=== PATIENT | female | born 1990 | race Caucasian/White ===

== ENCOUNTER 2017-06-01 02:35 | Outpatient (CLI) | payer OTHER | END 2017-06-01 06:10 | disposition home or self-care (01) | LOC: OBT 02:35 → L-D 02:39 → OBT 06:10 | DX: O26.893 Other specified pregnancy related conditions, third trimester (principal); R10.2 Pelvic and perineal pain; Z3A.24 24 weeks gestation of pregnancy | CPT/HCPCS: 76815; 76817 ==

== ENCOUNTER 2017-09-01 22:56 | Outpatient (CLI) | payer OTHER ==
[2017-09-02] MEDS: LACTATED RINGER'S 1,000 ML IV ×2 (00:11→02:04)
[2017-09-02 00:23] LABS: ADD MAN DIFF? NO
[2017-09-02 00:27] LABS: WHITE BLOOD COUNT 6.8 10^3/ul (4.8-10.8)
[2017-09-02 00:27] LABS: BASOPHILS % 0.1 % (0.0-2.0); EOSINOPHILS % 0.4 % (0.0-7.0); HEMATOCRIT 33.3 % (37.0-47.0); HEMOGLOBIN 11.3 g/dl (12.0-16.0); LYMPHOCYTES # 1.9 10^3/ul (0.8-2.9); MEAN CORPUSCULAR HEMOGLOBIN 29.8 pg (29.0-33.0); MEAN CORPUSCULAR HGB CONC 33.9 g/dl (32.0-37.0); MEAN CORPUSCULAR VOLUME 87.9 fl (82.0-101.0); MEAN PLATELET VOLUME 11.6 fl (7.4-10.4); MONOCYTE # 0.5 10^3/ul (0.3-0.9); MONOCYTES % 7.6 % (0.0-11.0); NEUTROPHIL # 4.4 10^3/ul (1.6-7.5); NEUTROPHILS % 64.6 % (39.0-77.0); PLATELET COUNT 180 10^3/UL (140-415); RED BLOOD COUNT 3.79 10^6/ul (4.20-5.40)
[2017-09-02 00:37] LABS: ADD UMIC YES; UR ASCORBIC ACID NEGATIVE (NEGATIVE); UR BACTERIA FEW /HPF (NONE SEEN); UR BILIRUBIN (Dip) NEGATIVE (NEGATIVE); UR BLOOD (Dip) NEGATIVE (NEGATIVE); UR CLARITY CLEAR (CLEAR); UR COLOR YELLOW (YELLOW); UR GLUCOSE (Dip) NEGATIVE (NEGATIVE); UR KETONES (Dip) NEGATIVE (NEGATIVE); UR LEUKOCYTE ESTERASE (Dip) TRACE Leu/ul (NEGATIVE); UR NITRITE (Dip) NEGATIVE (NEGATIVE); UR RBC 0 /HPF (0-5); UR SPECIFIC GRAVITY (Dip) 1.015 (1.003-1.030); UR TOTAL PROTEIN (Dip) NEGATIVE (NEGATIVE); UR UROBILINOGEN (Dip) NEGATIVE (NEGATIVE); UR WBC 1 /HPF (0-5)
[2017-09-02 00:42] LABS: ALANINE AMINOTRANSFERASE 19 IU/L (13-69); ALBUMIN 3.6 g/dl (3.3-4.9); ALBUMIN/GLOBULIN RATIO 1.09; ALKALINE PHOSPHATASE 207 IU/L (42-121); ANION GAP 13 (8-16); ASPARTATE AMINO TRANSFERASE 26 IU/L (15-46); BLOOD UREA NITROGEN 9 mg/dl (7-20); CALCIUM 8.8 mg/dl (8.4-10.2); CARBON DIOXIDE 25 mmol/L (21-31); CHLORIDE 107 mmol/L (97-110); CREATININE 0.57 mg/dl (0.44-1.00); GLUCOSE 72 mg/dl (70-220); POTASSIUM 3.8 mmol/L (3.5-5.1); SODIUM 141 mmol/L (135-144); TOTAL PROTEIN 6.9 g/dl (6.1-8.1)
== END 2017-09-02 03:20 | disposition home or self-care (01) ==
LOC: OBT 22:56 → L-D 22:58
DX: O36.8130 Decreased fetal movements, third trimester, not applicable or unspecified (principal); Z3A.37 37 weeks gestation of pregnancy
CPT/HCPCS: 36415; 76818; 80053; 81001; 85025; 96360; 96361

== ENCOUNTER 2017-09-08 17:10 | Outpatient (CLI) | payer OTHER | END 2017-09-08 18:50 | disposition home or self-care (01) | LOC: OBT 17:10 → L-D 17:11 → OBT 18:50 | DX: O62.9 Abnormality of forces of labor, unspecified (principal); Z3A.38 38 weeks gestation of pregnancy | CPT/HCPCS: Z7500 ==

== ENCOUNTER 2017-09-10 06:23 | Inpatient (IN) | payer OTHER ==
[2017-09-10] MEDS ORDERED: LACTATED RINGER'S 1,000 ML IV (06:46)
[2017-09-10] MEDS ORDERED: OXYTOCIN 30 UNITS/LR 500 ML IV ×2 (07:00→14:30)
[2017-09-10] MEDS ORDERED: IBUPROFEN 600 MG TAB PO (07:00)
[2017-09-10] MEDS ORDERED: BUTORPHANOL 2 MG INJ IV (07:00)
[2017-09-10] MEDS ORDERED: LIDOCAINE 1% (MPF) 30 ML INJ INJ (07:00)
[2017-09-10] MEDS ORDERED: MISOPROSTOL 200 MCG TAB PR ×2 (07:00→14:30)
[2017-09-10] MEDS ORDERED: CARBOPROST 250 MCG INJ IM ×2 (07:00→14:30)
[2017-09-10] MEDS ORDERED: METHYLERGONOVINE 0.2 MG INJ IM ×2 (07:00→14:30)
[2017-09-10 07:04] LABS: ADD MAN DIFF? NO
[2017-09-10 07:06] LABS: WHITE BLOOD COUNT 7.4 10^3/ul (4.8-10.8)
[2017-09-10 07:06] LABS: BASOPHILS % 0.1 % (0.0-2.0); EOSINOPHILS # 0.1 10^3/ul (0.0-0.5); EOSINOPHILS % 0.7 % (0.0-7.0); HEMATOCRIT 36.5 % (37.0-47.0); HEMOGLOBIN 12.4 g/dl (12.0-16.0); LYMPHOCYTES # 2.1 10^3/ul (0.8-2.9); MEAN CORPUSCULAR HEMOGLOBIN 30.6 pg (29.0-33.0); MEAN CORPUSCULAR VOLUME 90.1 fl (82.0-101.0); MONOCYTE # 0.5 10^3/ul (0.3-0.9); MONOCYTES % 7.3 % (0.0-11.0); NEUTROPHIL # 4.7 10^3/ul (1.6-7.5); NEUTROPHILS % 63.5 % (39.0-77.0); PLATELET COUNT 172 10^3/UL (140-415); RED BLOOD COUNT 4.05 10^6/ul (4.20-5.40); RED CELL DISTRIBUTION WIDTH 13.8 % (11.5-14.5)
[2017-09-10] MEDS: LACTATED RINGER'S 1,000 ML IV ×2 (07:13→08:00)
[2017-09-10] MEDS: AMPICILLIN 2 GM/NS (PMX) 100 ML IV (07:13)
[2017-09-10] MEDS ORDERED: FENTAnyl 2MCG/ML-ROPIV 0.2% 100 ML (07:23)
[2017-09-10 07:32] LABS: INR 0.85; PROTIME 11.7 Sec (11.9-14.9); PT RATIO 0.9
[2017-09-10 07:33] LABS: PARTIAL THROMBOPLASTIN TIME 29.5 Sec (25.0-35.0)
[2017-09-10 08:35] LABS: HEPATITIS B SURFACE ANTIGEN NEGATIVE (NEGATIVE)
[2017-09-10] MEDS ORDERED: NALOXONE (0.4 MG/ML) INJ IV (09:00)
[2017-09-10] MEDS ORDERED: FENTAnyl 2MCG/ML-ROPIV 0.2% 100 ML BAG EPI (09:00)
[2017-09-10] MEDS: MINERAL OIL LIGHT 10 ML VIAL TOP (09:00)
[2017-09-10] MEDS: OXYTOCIN 30 UNITS/LR 500 ML IV ×2 (10:42→11:26)
[2017-09-10] MEDS ORDERED: AMPICILLIN 1 GM/NS (PMX) 50 ML IV (11:00)
[2017-09-10] MEDS ORDERED: WITCH HAZEL/GLYCERIN PAD PR (14:30)
[2017-09-10] MEDS ORDERED: BENZOCAINE 20% 56 ML SPRAY TOP (14:30)
[2017-09-10] MEDS ORDERED: ZOLPIDEM 5 MG TAB PO (14:30)
[2017-09-10] MEDS ORDERED: HYDROCODONE/APAP (5/325) TAB PO ×2 (14:30)
[2017-09-10] MEDS ORDERED: DIBUCAINE 1% 30 GM OINT PR (14:30)
[2017-09-10] MEDS: LACTATED RINGER'S 1,000 ML IV* (14:59)
[2017-09-10] MEDS: CEPHALEXIN 500 MG CAP PO ×2 (17:46→23:34)
[2017-09-10] MEDS: IBUPROFEN 600 MG TAB PO ×2 (17:47→23:34)
[2017-09-10] MEDS: SENNA/DOCUSATE NA (8.6MG/50MG) TAB PO (21:20)
[2017-09-10] MEDS: MAGNESIUM HYDROXIDE 30ML CUP PO (21:20)
[2017-09-10 22:21] LABS: RAPID PLASMA REAGIN NONREACTIVE (NR)
[2017-09-11] MEDS: CEPHALEXIN 500 MG CAP PO ×4 (05:42→23:33)
[2017-09-11] MEDS: IBUPROFEN 600 MG TAB PO ×4 (05:42→23:34)
[2017-09-11] MEDS: MAGNESIUM HYDROXIDE 30ML CUP PO ×2 (09:38→21:00)
[2017-09-11] MEDS: SENNA/DOCUSATE NA (8.6MG/50MG) TAB PO ×2 (09:38→21:00)
[2017-09-11 11:23] LABS: ADD MAN DIFF? NO
[2017-09-11 11:28] LABS: BASOPHILS % 0.2 % (0.0-2.0); EOSINOPHILS % 0.7 % (0.0-7.0); HEMOGLOBIN 10.4 g/dl (12.0-16.0); LYMPHOCYTES # 1.8 10^3/ul (0.8-2.9); LYMPHOCYTES % 28.9 % (15.0-51.0); MEAN CORPUSCULAR HEMOGLOBIN 30.1 pg (29.0-33.0); MEAN CORPUSCULAR HGB CONC 33.5 g/dl (32.0-37.0); MEAN CORPUSCULAR VOLUME 89.9 fl (82.0-101.0); MEAN PLATELET VOLUME 11.7 fl (7.4-10.4); MONOCYTE # 0.5 10^3/ul (0.3-0.9); MONOCYTES % 8.1 % (0.0-11.0); NEUTROPHIL # 3.7 10^3/ul (1.6-7.5); NEUTROPHILS % 61.4 % (39.0-77.0); PLATELET COUNT 158 10^3/UL (140-415); RED BLOOD COUNT 3.45 10^6/ul (4.20-5.40); RED CELL DISTRIBUTION WIDTH 13.9 % (11.5-14.5)
[2017-09-11 11:28] LABS: WHITE BLOOD COUNT 6.1 10^3/ul (4.8-10.8)
[2017-09-12] MEDS: IBUPROFEN 600 MG TAB PO ×2 (05:27→12:29)
[2017-09-12] MEDS: CEPHALEXIN 500 MG CAP PO ×2 (05:27→12:29)
[2017-09-12] MEDS: LANOLIN 7 GM TUBE TOP (05:35)
[2017-09-12] MEDS: MAGNESIUM HYDROXIDE 30ML CUP PO (09:00)
[2017-09-12] MEDS: SENNA/DOCUSATE NA (8.6MG/50MG) TAB PO (09:00)
[2017-09-12] MEDS: MEASLES,MUMPS,RUBELLA VACCINE INJ SC* (09:05)
[2017-09-12] MEDS: DIPHTH/TET/ACEL PERTUSS (ADULT) 0.5 ML VIAL IM* (09:05)
[2017-09-12] MEDS: VARICELLA VACCINE LIVE/PF 1,350 UNIT/0.5 ML ML SC* (09:06)
== END 2017-09-12 16:16 | disposition home or self-care (01) | DRG 775 ==
LOC: OBT 06:23 → L-D 06:23 → OBT 06:32 → L-D 06:32 → PP1 13:50
PROVIDERS: Obstetrics & Gynecology
PROC: 10E0XZZ Delivery of Products of Conception, External Approach (ICD-10-PCS; principal; 2017-09-10)
DX: O80 Encounter for full-term uncomplicated delivery (principal); Z3A.38 38 weeks gestation of pregnancy; Z37.0 Single live birth
CPT/HCPCS: 62319; 85025; 85610; 85730; 86592; 86850; 86900; 86901; 87340

== ENCOUNTER 2018-04-04 10:07 | Emergency (ER) | payer OTHER ==
[2018-04-04] MEDS: ACETAMINOPHEN 325 MG TAB PO (11:36)
== END 2018-04-04 12:16 | disposition home or self-care (01) ==
LOC: FTE 10:07
DX: J02.9 Acute pharyngitis, unspecified (principal)
CPT/HCPCS: 99283; Z7502